=== PATIENT | male | born 1975 | race Caucasian/White ===

== ENCOUNTER 2017-01-10 09:26 | Emergency (ER) | payer SELFPAY ==
[~2017-01-10] VITALS: Ht 188 cm; Wt 123.0 kg
[2017-01-10 09:28] VITALS: BP 213/126; PULSE 86; RESP 12; TEMP 98.8; O2SAT 95
[2017-01-10 09:35] VITALS: BP 187/107; PULSE 81; RESP 17; TEMP 98.6; O2SAT 97
[2017-01-10] MEDS ORDERED: LISI-515 PO ×2 (09:43→09:58)
[2017-01-10] MEDS ORDERED: cloNIDine HCL 0.2 MG TAB PO ONE (09:45)
--- NOTE | 2017-01-10 10:13 | PD ---
HPI Chief Complaint: Hypertension Time Seen by Provider: 09:38 Travel History International Travel<30 days: No Contact w/Intl Traveler<30days: No Traveled to known affect area: No History of Present Illness HPI This patient presents to the ER for elevated blood pressure. He has long- standing history of hypertension and used to take lisinopril 20 mg daily. He reports that when he took that he tolerated it fine his blood pressures were much better. Current pressure is 180/107. Unfortunately the patient is a cigarette smoker and uses cocaine and drinks at least 8 alcoholic drinks daily. He denies IV drug use. He is not having chest pain or headache. No presyncopal symptoms. Symptoms severity is mild. PFSH Past Medical History Diminished Hearing: No Hypertension: Yes Tetanus Vaccination: Unknown ?: Not Social History Alcohol Use: Yes (8 beers daily ) Tobacco Use: Yes Substance Use: Yes (cocaine, marijuana ) Allergies-Medications (Allergen,Severity, Reaction): Coded Allergies: No Known Allergies (Unverified , 01/10/17) Reported Meds & Prescriptions Reported Meds & Active Scripts Active Lisinopril 20 Mg Tab 20 Mg PO DAILY Review of Systems General / Constitutional: No: Fever HENT: No: Headaches Cardiovascular: No: Chest Pain or Discomfort Respiratory: No: Cough Gastrointestinal: No: Abdominal Pain Psychiatric: Positive: Substance Abuse Physical Exam Narrative GENERAL: Well-nourished, well-developed patient in no apparent distress. SKIN: Focused skin assessment reveals no rash and nodules. Skin is Warm and dry. HEAD: Atraumatic. Normocephalic. EYES: Pupils equal and round. No scleral icterus. No injection or drainage. ENT: No nasal bleeding or discharge. Mucous membranes pink and moist. NECK: Trachea midline. No JVD. CARDIOVASCULAR: Regular rate and rhythm. No murmur appreciated. RESPIRATORY: No accessory muscle use. Clear to auscultation. Breath sounds equal bilaterally. GASTROINTESTINAL: Abdomen soft, obese, non-tender, nondistended. Hepatic and splenic margins not palpable. MUSCULOSKELETAL: No obvious deformities. No clubbing. No cyanosis. Trace symmetric ankle edema. NEUROLOGICAL: Awake and alert. No obvious cranial nerve deficits. Motor grossly within normal limits. Normal speech. PSYCHIATRIC: Appropriate mood and affect; insight and judgment poor Data Data Last Documented VS Vital Signs Date Time Temp Pulse Resp B/P (MAP) Pulse Ox O2 Delivery O2 Flow Rate FiO2 01/10/17 09:35 98.6 81 17 187/107 (133) 97 01/10/17 09:28 Room Air Orders Orders Clonidine (Catapres) (01/10/17 09:45) MDM Medical Decision Making Medical Screen Exam Complete: Yes Emergency Medical Condition: Yes Medical Record Reviewed: Yes Differential Diagnosis Accelerated hypertension, polysubstance abuse, noncompliance Narrative Course I have reviewed the patient's electronic medical record. I gave him a dose of clonidine I refilled his lisinopril for one month Most importantly he needs to get rid of the cocaine and alcohol and cigarettes and I believe his blood pressure will be much improved He is advised to check and recorded daily and follow up with primary care Diagnosis Primary Impression: Accelerated hypertension Additional Impression: Polysubstance abuse Additional Instructions: Check and record blood pressure daily Avoid cigarettes alcohol and cocaine The patient was advised to follow up with their physician and return if they worsen. Med/Other Pt SpecificInfo: Prescription(s) given Scripts Lisinopril (Lisinopril) 20 Mg Tab 20 MG PO DAILY, #30 TAB 0 Refills Prov: Kayode Barros MD 01/10/17 Disposition: 01 DISCHARGE HOME Condition: Stable Kayode Barros MD Jan 10, 2017 10:13
[2017-01-10 10:30] VITALS: BP 170/102
== END 2017-01-10 10:43 | disposition home or self-care (01) ==
LOC: NEPD 09:26
DX: I10 Essential (primary) hypertension (principal); F19.10 Other psychoactive substance abuse, uncomplicated; Z72.0 Tobacco use
CPT/HCPCS: 99283

== ENCOUNTER 2017-06-18 16:46 | Emergency (ER) | payer SELFPAY ==
[~2017-06-18] VITALS: Ht 190.5 cm; Wt 120.0 kg
[~2017-06-18 16:46] MED LIST: LISI-515 PO
[2017-06-18 16:52] VITALS: BP 173/89; PULSE 86; RESP 16; TEMP 98; O2SAT 97
[2017-06-18] MEDS ORDERED: PHENYLEPHRINE INJ 0.5 MG, SODIUM CHLORIDE 0.9% INJ 0.95 ML in SYRINGE/BAG 1 EA I-CAVITARY ONE ×2 (17:30)
--- NOTE | 2017-06-18 17:34 | PD ---
HPI Chief Complaint: Complaint Time Seen by Provider: 17:13 Travel History International Travel<30 days: No Contact w/Intl Traveler<30days: No Traveled to known affect area: No History of Present Illness HPI The patient is a 41-year-old [place] male who presents emergency department for priapism. The patient states he used cocaine earlier today at 1 PM, then developed a priapism. The patient does have a history of priapism after previous cocaine use. He denies the use of any erectile dysfunction medications. He did not attempt sex or masturbation after the priapism, states it is not worked in the past. He has received injections and drainage in the past for priapism. He denies any history of sickle cell disease. He denies any trauma to the penis. Symptoms are moderate, exacerbated after using cocaine , there are no current alleviating factors. PFSH Past Medical History Diminished Hearing: No Hypertension: Yes Reproductive: Yes (PRIAPISM) Tetanus Vaccination: Unknown Social History Alcohol Use: Yes (8 beers daily ) Tobacco Use: Yes Substance Use: Yes (cocaine, marijuana ) Allergies-Medications (Allergen,Severity, Reaction): Coded Allergies: No Known Allergies (Unverified Allergy, Unknown, 06/18/17) Reported Meds & Prescriptions Reported Meds & Active Scripts Active [place] (Hydrocodone-Acetaminophen) 5 Mg-325 Mg Tab 1 Tab PO Q6H PRN Lisinopril 20 Mg Tab 20 Mg PO DAILY Review of Systems Except as stated in HPI: all other systems reviewed are Neg General / Constitutional: No: Fever Gastrointestinal: No: Nausea, Vomiting Genitourinary: Positive: Other (as noted in history of present illness) Hematologic/Lymphatic: No: Other (denies any history of sickle cell disease) Physical Exam Narrative GENERAL: Awake, alert, pleasant 41-year-old male who appears his stated age and is in no acute respiratory distress. SKIN: Focused skin assessment warm/dry. HEAD: Atraumatic. Normocephalic. EYES: No injection or drainage. NECK: Trachea midline. No JVD. CARDIOVASCULAR: Regular rate and rhythm. No murmur appreciated. RESPIRATORY: No accessory muscle use. Clear to auscultation. Breath sounds equal bilaterally. GASTROINTESTINAL: Abdomen soft, non-tender, nondistended. No rebound tenderness. Genitourinary: Erection noted. MUSCULOSKELETAL: No obvious deformities. No clubbing. No cyanosis. No edema. NEUROLOGICAL: Awake and alert. No obvious cranial nerve deficits. Motor grossly within normal limits. Normal speech. PSYCHIATRIC: Appropriate mood and affect; insight and judgment normal. Data Data Last Documented VS Vital Signs Date Time Temp Pulse Resp B/P (MAP) Pulse Ox O2 Delivery O2 Flow Rate FiO2 06/18/17 19:44 78 16 143/76 (98) 98 Room Air 06/18/17 16:52 98.0 Orders Orders Phenylephrine Inj (Neosynephrine Inj)... (06/18/17 17:30) Morphine Inj (Morphine Inj) (06/18/17 17:45) Ondansetron Inj (Zofran Inj) (06/18/17 17:45) Sodium Chlor 0.9% 1000 Ml Inj (Ns 1000 M (06/18/17 17:45) Morphine Inj (Morphine Inj) (06/18/17 18:45) Ed Discharge Order (06/18/17 19:17) [facility] Medical Decision Making Medical Screen Exam Complete: Yes Emergency Medical Condition: Yes Medical Record Reviewed: Yes Differential Diagnosis Differential diagnosis includes priapism, cocaine side effect, sickle cell disease, ischemia. Narrative Course Phenylephrine intracavernous dose was ordered from pharmacy. I had a discussion regarding the risk and benefits of intracavernous injection, he is agreeable. I injected 250 mics of phenylephrine to each side of the penis on the proximal one third without difficulty. The patient was then monitored in the emergency department for alleviation of the erection. The patient was reevaluated at 6:45 PM, the erection had improved, but not completely. He did complain of pain, was administered another dose of morphine. The patient was then monitored in the emergency department for resolution of the priapism. Diagnosis Primary Impression: Priapism Patient Instructions: General Instructions Additional Instructions: Do not use cocaine. Follow-up with urology as needed. Return if symptoms worsen or progress. Med/Other Pt SpecificInfo: Prescription(s) given Scripts Hydrocodone-Acetaminophen ([place]) 5 Mg-325 Mg Tab 1 TAB PO Q6H Y for PAIN, #10 TAB 0 Refills Prov: Juan Carlos Larose MD 06/18/17 Disposition: 01 DISCHARGE HOME Condition: Stable Juan Carlos Larose MD Jun 18, 2017 17:34
[2017-06-18] MEDS ORDERED: ONDANSETRON HCL 4 MG/2 ML VIAL IV PUSH ONE (17:45)
[2017-06-18] MEDS ORDERED: MORPHINE SULFATE 4 MG/ML INJ IV PUSH ONE ×2 (17:45→18:45)
[2017-06-18] MEDS ORDERED: SODIUM CHLOR 0.9% 1000 ML INJ 1,000 ML IV ONE (17:45)
[2017-06-18] MEDS ORDERED: NORC5TAB PO (18:46)
[2017-06-18 19:44] VITALS: BP 143/76; PULSE 78; RESP 16; O2SAT 98
== END 2017-06-18 19:45 | disposition home or self-care (01) ==
LOC: NEPC 16:46
DX: N48.30 Priapism, unspecified (principal); I10 Essential (primary) hypertension; F14.90 Cocaine use, unspecified, uncomplicated; F12.90 Cannabis use, unspecified, uncomplicated; Z72.89 Other problems related to lifestyle; Z72.0 Tobacco use
CPT/HCPCS: 54220; 96374; 96375; 96376; 99284; J2270; J2370; J2405; J7030

== ENCOUNTER 2018-02-13 19:37 | Observation (INO) ==
--- NOTE | 2018-02-13 21:41 | XR ---
EXAM DATE: 02/13/2018 9:35 PM EST AGE/SEX: 42 years / Male INDICATIONS: Chest pain. CLINICAL DATA: This is the patient's initial encounter. Patient reports that signs and symptoms have been present for 3 days and indicates a pain score of 6/10. MEDICAL/SURGICAL HISTORY: Congestive heart failure. Hypertension. None. COMPARISON: No prior exams available for comparison. FINDINGS: The heart is enlarged. The central bronchopulmonary markings are mildly indistinct. No peripheral inf iltrates seen. Both hemidiaphragms well delineated. The trachea is midline. CONCLUSION: Cardiomegaly and central vascular prominence suggests pulmonary venous hypertension. Electronically signed by: Suresh Ku MD 02/13/2018 9:40 PM EST
[2018-02-13] MEDS ORDERED: Acetaminophen 325 MG Tablet PO ONE (21:49)
[2018-02-13 21:55] LABS: Activated Partial Thrombo Time 26.7 sec (23.4-31.7)
[2018-02-13 21:56] LABS: D-Dimer 0.29 mg/L FEU (0.00-0.50)
--- NOTE | 2018-02-13 21:56 | ED ---
HPI General Chief complaint: Chest Pain Stated complaint: Chest Pain Time Seen by Provider: 02/13/18 21:07 History of Present Illness HPI narrative: Patient is a 42 yo male with a history of CHF and HTN presenting with chest pain. Patient reports that about 5 days ago he felt a sudden sharp pain in his right chest while driving. The pain has remained constant since, and building to an intensity of 8/10 on the pain scale. He denies radiation of the pain to his arm or jaw. He denies chest wall tenderness but reports that pain is worsened by some movements of his right arm and coughing. He denies any alleviating factors. He reports that he is short of breath at times but believes this to be unrelated to his pain. He denies headache, dizziness, reflux, abdominal pain, nausea, vomiting, and changes in bowel/bladder habits. Of note, he has been treated in the past for his hypertension with lisinopril but has not taken this medication in 1-2 months. Related Data Home Medications Medication Instructions Recorded Confirmed No Known Home Medications 02/13/18 02/13/18 Allergies Allergy/AdvReac Type Severity Reaction Status Date / Time No Known Allergies Allergy Verified 02/13/18 19:56 Review of Systems Constitutional Denies fever(s) and Denies headache(s) Eyes Denies change in vision ENT Denies headache(s) and Denies nasal congestion Cardiovascular Reports chest pain, Reports chest pain at rest, Denies pedal edema, Denies edema and Reports leg edema Gastrointestinal Denies abdominal pain, Denies diarrhea, Denies nausea and Denies vomiting Genitourinary Denies difficulty urinating Musculoskeletal Denies myalgias Integumentary/Breasts Denies rash Neurologic Denies headache(s) Psychiatric Denies depression Endocrine Denies polyuria Hematologic/Lymphatic Denies easy bruising PMFSH Medical History Medical History Anxiety (Acute) CHF (congestive heart failure) (Acute) Hypertension (Acute) Social History Social History Substance History: No History of Abuse Smoking Status: Current every day smoker Tobacco Type: Cigarettes How Often Do You Have a Drink Containing Alcohol: 4 or more times a week Recent Travel in [facility] within the Last 8 Weeks: No Recent Out of Country Travel within the Last 8 Weeks: No Immunization History Tetanus Immunization: Unsure Exam Const General: cooperative and well developed Nutritional Appearance: well nourished and obese Orientation: alert, awake and oriented x3 HENMT Head: normocephalic and atraumatic Nose: no nasal discharge and no epistaxis Mouth: moist mucous membranes Eyes Sclera: normal sclerae Pupils: PERRL Neck Neck: trachea midline and no JVD Chest Chest: normal inspection of the chest Resp Effort & Inspection: no use of accessory muscles Auscultation: clear to auscultation bilaterally Cardio Rate: regular rate Rhythm: regular rhythm GI Inspection: non-distended Palpation: soft, no hepatosplenomegaly and nontender Skin General: dry skin (warm) Rashes: no rashes Neuro General: alert and awake Speech: speech normal Motor: no movement abnormalities noted Extrem General: normal to inspection, no clubbing, no cyanosis and no edema Psych Mood: congruent mood Affect: normal affect Judgment: judgment good Course Initial Documented Vital Signs Temperature 98.4 F 02/13/18 19:53 Pulse Rate 94 H 02/13/18 19:53 Respiratory Rate 15 02/13/18 19:53 Blood Pressure 176/108 H 02/13/18 19:53 Pulse Oximetry 96 02/13/18 19:53 Last Documented Vital Signs Temperature 98.4 F 02/13/18 19:53 Pulse Rate 90 02/13/18 21:15 Respiratory Rate 15 02/13/18 19:53 Blood Pressure 183/115 H 02/13/18 21:15 Pulse Oximetry 96 02/13/18 21:15 Medical Decision Making MDM Narrative Medical decision making narrative: I, Dr. Escoto, have reviewed the medical student's documentation, and I am in agreement, met with the patient face to face, made the diagnosis, and the medical decision making was done by me. The patient was initially evaluated by MARIANNE Sharp. Please see their complete history and physical. *My assessment and Findings: The patient presents with a history of right-sided chest pain that he reports began on Monday or Monday while he was driving. He reports that it is worsened with movement and activity, however it continues to be constant. He reports that it is gradually getting worse with time. He reports that it was in the right side of his anterior chest and then now is both in the right side and central chest. He denies having any diaphoresis, nausea, vomiting, radiation of pain associated with this. During the course of the patient's emergency department visit, the patient's history, examination, and differential diagnosis were reviewed with the patient. The patient was placed on a monitoring engineer with oximetry and frequent blood pressure monitoring. The patient had [-] IV access obtained and blood work sent for analysis. The patient was initially provided [-]. The patient's diagnostic studies were reviewed and remarkable for Lab Data Result diagrams: 02/13/18 22:30 02/13/18 21:20 Lab Results 02/13/18 02/13/18 02/13/18 Range/Units 21:20 21:20 21:20 WBC (4.0-11.0) th/mm3 RBC (4.50-5.90) mil/mm3 Hgb (13.0-17.0) gm/dL Hct (39.0-51.0) % MCV (80.0-100.0) fL MCH (27.0-34.0) pg MCHC (32.0-36.0) % RDW (11.6-17.2) % Plt Count (150-450) th/mm3 MPV (7.0-11.0) fL Neut % (Auto) (16.0-70.0) % Lymph % (Auto) (9.0-44.0) % [place] % (Auto) (0.0-8.0) % Eos % (Auto) (0.0-4.0) % Baso % (Auto) (0.0-2.0) % Neut # (Auto) (1.8-7.7) th/mm3 Lymph # (Auto) (1.0-4.8) th/mm3 [place] # (Auto) (0.0-0.9) th/mm3 Eos # (Auto) (0.0-0.4) th/mm3 Baso # (Auto) (0.0-0.2) th/mm3 WBC Differential Differential Comment PT 10.0 (9.8-11.6) sec INR 1.0 Ratio APTT 26.7 (23.4-31.7) sec D-Dimer Quant (PE/DVT) 0.29 (0.00-0.50) mg/L FEU Sodium 142 (136-145) meq/L Potassium 3.6 (3.5-5.1) meq/L Chloride 107 (98-107) meq/L Carbon Dioxide 24.6 (21.0-32.0) meq/L Anion Gap 10 (5-15) meq/L BUN 10 (7-18) mg/dL Creatinine 0.82 (0.60-1.30) mg/dL Estimated GFR Greater than 89 (>89) mL/min Random Glucose 93 (74-106) mg/dL Calcium 8.6 (8.5-10.1) mg/dL Magnesium 2.3 (1.5-2.5) mg/dL Total Bilirubin 0.2 (0.2-1.0) mg/dL AST 24 (15-37) U/L ALT 36 (12-78) U/L Alkaline Phosphatase 89 (45-117) U/L Total Creatine Kinase 215 (39-308) U/L CK-MB (CK-2) 1.6 (0.5-3.6) ng/mL Troponin I 0.06 H (0.02-0.05) ng/mL B-Natriuretic Peptide 41 (0-100) pg/mL Total Protein 7.6 (6.4-8.2) g/dL Albumin 3.6 (3.4-5.0) g/dL Lipase 152 (73-393) U/L 02/13/ Range/Units 22:30 WBC 5.0 (4.0-11.0) th/mm3 RBC 4.49 L (4.50-5.90) mil/mm3 Hgb 13.5 (13.0-17.0) gm/dL Hct 40.5 (39.0-51.0) % MCV 90.2 (80.0-100.0) fL MCH 30.0 (27.0-34.0) pg MCHC 33.3 (32.0-36.0) % RDW 15.0 (11.6-17.2) % Plt Count 232 (150-450) th/mm3 MPV 10.0 (7.0-11.0) fL Neut % (Auto) 50.3 (16.0-70.0) % Lymph % (Auto) 35.2 (9.0-44.0) % [place] % (Auto) 10.5 H (0.0-8.0) % Eos % (Auto) 2.9 (0.0-4.0) % Baso % (Auto) 1.1 (0.0-2.0) % Neut # (Auto) 2.5 (1.8-7.7) th/mm3 Lymph # (Auto) 1.8 (1.0-4.8) th/mm3 [place] # (Auto) 0.5 (0.0-0.9) th/mm3 Eos # (Auto) 0.1 (0.0-0.4) th/mm3 Baso # (Auto) 0.1 (0.0-0.2) th/mm3 WBC Differential . Differential Comment Auto diff final PT (9.8-11.6) sec INR Ratio APTT (23.4-31.7) sec D-Dimer Quant (PE/DVT) (0.00-0.50) mg/L FEU Sodium (136-145) meq/L Potassium (3.5-5.1) meq/L Chloride (98-107) meq/L Carbon Dioxide (21.0-32.0) meq/L Anion Gap (5-15) meq/L BUN (7-18) mg/dL Creatinine (0.60-1.30) mg/dL Estimated GFR (>89) mL/min Random Glucose (74-106) mg/dL Calcium (8.5-10.1) mg/dL Magnesium (1.5-2.5) mg/dL Total Bilirubin (0.2-1.0) mg/dL AST (15-37) U/L ALT (12-78) U/L Alkaline Phosphatase (45-117) U/L Total Creatine Kinase (39-308) U/L CK-MB (CK-2) (0.5-3.6) ng/mL Troponin I (0.02-0.05) ng/mL B-Natriuretic Peptide (0-100) pg/mL Total Protein (6.4-8.2) g/dL Albumin (3.4-5.0) g/dL Lipase (73-393) U/L Imaging Data Radiologist's impression: Chest X-Ray 02/13/18 21:08 CONCLUSION: Cardiomegaly and central vascular prominence suggests pulmonary venous hypertension. ECG Data Attestation: I personally reviewed and interpreted this ECG as follows: Interpretation: The patient had an EKG done on arrival. The patient's EKG reveals a sinus rhythm heart rate of 93, QRS duration 99 ms, QTC [address] segment elevation. Downsloping ST segments are noted in lead III with T wave inversions in lead III. Discharge Plan Physicians Team ED Provider: Coty Escoto Primary Care Provider: Primary Care Molly Gomez Attending Provider: Krystal Will Status ED Status: Admitted Patient
[2018-02-13 21:59] LABS: Albumin 3.6 g/dL (3.4-5.0); Anion Gap 10 meq/L (5-15); Aspartate Aminotransferase 24 U/L (15-37); Blood Urea Nitrogen 10 mg/dL (7-18); Calcium 8.6 mg/dL (8.5-10.1); Carbon Dioxide 24.6 meq/L (21.0-32.0); Chloride 107 meq/L (98-107); Glomerular Filtration Rate Greater Than 89 mL/min (>89); Glucose,Random 93 mg/dL (74-106); Lipase 152 U/L (73-393); Magnesium 2.3 mg/dL (1.5-2.5); Potassium 3.6 meq/L (3.5-5.1); Sodium 142 meq/L (136-145)
[2018-02-13 22:00] LABS: Alanine Aminotransferase 36 U/L (12-78)
[2018-02-13 22:04] LABS: Alkaline Phosphatase 89 U/L (45-117); Creatine Kinase 215 U/L (39-308); Total Protein 7.6 g/dL (6.4-8.2); Troponin I 0.06 ng/mL (0.02-0.05)
[2018-02-13 22:16] LABS: Creatine Kinase MB 1.6 ng/mL (0.5-3.6)
[2018-02-13] MEDS ORDERED: Labetalol HCl Inj 100 MG/20 ML Vial IV.PUSH ONE (22:28)
[2018-02-13 22:57] LABS: Baso # (Auto) 0.1 th/mm3 (0.0-0.2); Baso % (Auto) 1.1 % (0.0-2.0); Eos # (Auto) 0.1 th/mm3 (0.0-0.4); Eos % (Auto) 2.9 % (0.0-4.0); Hematocrit 40.5 % (39.0-51.0); Hemoglobin 13.5 gm/dL (13.0-17.0); Lymph # (Auto) 1.8 th/mm3 (1.0-4.8); Lymph % (Auto) 35.2 % (9.0-44.0); Mean Corpuscular HGB Conc 33.3 % (32.0-36.0); Mean Corpuscular Volume 90.2 fL (80.0-100.0); Mono # (Auto) 0.5 th/mm3 (0.0-0.9); Mono % (Auto) 10.5 % (0.0-8.0); Neut # (Auto) 2.5 th/mm3 (1.8-7.7); Neut % (Auto) 50.3 % (16.0-70.0); Platelet Count 232 th/mm3 (150-450); Red Blood Count 4.49 mil/mm3 (4.50-5.90)
[2018-02-14] MEDS ORDERED: Morphine Inj 4 MG/ML Vial IV.PUSH PRN (01:59)
[2018-02-14] MEDS ORDERED: Acetaminophen 500 MG Tablet PO PRN (01:59)
--- NOTE | 2018-02-14 02:10 | P.HP ---
History of Present Illness Service: [facility] Primary Care Physician: No Primary Care Physician History of Present Illness: 42-year-old male with a past medical history significant for CHF and hypertension presents to the emergency department for the evaluation of chest pain. The patient reports that approximately 4 days ago he started having right -sided chest pain. He states the pain begins in the center of his chest and radiates to the right. The pain is worse with movement. He has had intermittent shortness of breath. He states his symptoms continue to worsen. No abdominal pain. No nausea/vomiting/diarrhea. No fever/chills. No lateralizing signs/symptoms. Inpatient Certification: I certify that the inpatient services were ordered in accordance with Medicare regulations governing the order. This includes certification that hospital inpatient services are reasonable and necessary and in the case of services not specified as inpatient-only under 42 CFR 419.22(n), that they are appropriately provided as inpatient services in accordance to with the 2-midnight benchmark under 43 CFR 412.3(e) Review of Systems All other systems reviewed negative except as stated in HPI PMFSH - History History Provided By: Patient - Medical History Medical History: Medical History (Last Reviewed 02/14/18 @ 02:00 by Krystal Will MD) Anxiety CHF (congestive heart failure) Hypertension - Surgical History Surgical History: Surgical History (Last Updated 02/14/18 @ 02:00 by Krystal Will MD) No history of previous surgery - Family History Family History: Family History (Last Updated 02/14/18 @ 02:00 by Krystal Will MD) Other Hypertension - Tobacco History Tobacco Use In Past 30 Days: Yes Smoking Status: Current every day smoker Tobacco Type: Cigarettes - Alcohol History How Often Do You Have a Drink Containing Alcohol: 4 or more times a week - Substance Use History Substance History: No History of Abuse - Travel History Recent Travel in the [place] Within the Last 8 Weeks: No Recent Travel Out of the Country Within the Last 8 Weeks: No - Immunization History Tetanus Immunization: Unsure Medications and Allergies Active Medications: Active Medications Sodium Chloride (Ns Flush) 2 ml IV.FLUSH UNSCH PRN PRN Reason: FLUSH AFTER USING IV ACCESS Allergies Allergy/AdvReac Type Severity Reaction Status Date / Time No Known Allergies Allergy Verified 02/13/18 19:56 Home Medications Medication Instructions Recorded Confirmed Type No Known Home Medications 02/13/18 02/13/18 History Exam Vital signs: Vital Signs 02/13/18 19:53 02/13/18 21:15 Temperature 98.4 F Pulse Rate 94 H 90 Respiratory Rate 15 Blood Pressure 176/108 H 203/117 H Pulse Oximetry 96 96 Intake & Output 02/13/18 02/13/18 02/14/18 06:59 18:59 06:59 Weight 130.181 kg Narrative: Gen.: No acute distress Head: Normocephalic. Atraumatic. EENT: Pupils equal round and reactive to light. Nose without drainage. Airway intact. Throat without injection. Cardiovascular: Regular rate and rhythm. No murmurs, rubs or gallops. Respiratory: Lungs clear to auscultation bilaterally. No wheezes or rhonchi. Abdomen: Soft, nontender, nondistended. No peritoneal signs. Musculoskeletal: No gross deformities. No edema. Skin: No obvious rashes or erythema. Neuro: Sensory and motor grossly intact. Cranial nerves II through XII grossly intact. Results - Labs CBC & Chem 7: 02/13/18 22:30 02/13/18 21:20 Labs: Laboratory Results - last 24 hr 02/13/18 02/13/18 02/13/18 21:20 21:20 21:20 WBC RBC Hgb Hct MCV MCH MCHC RDW Plt Count MPV Neut % (Auto) Lymph % (Auto) [place] % (Auto) Eos % (Auto) Baso % (Auto) Neut # (Auto) Lymph # (Auto) [place] # (Auto) Eos # (Auto) Baso # (Auto) WBC Differential Differential Comment PT 10.0 INR 1.0 APTT 26.7 D-Dimer Quant (PE/DVT) 0.29 Sodium 142 Potassium 3.6 Chloride 107 Carbon Dioxide 24.6 Anion Gap 10 BUN 10 Creatinine 0.82 Estimated GFR Greater than 89 Random Glucose 93 Calcium 8.6 Magnesium 2.3 Total Bilirubin 0.2 AST 24 ALT 36 Alkaline Phosphatase 89 Total Creatine Kinase 215 CK-MB (CK-2) 1.6 Troponin I 0.06 H B-Natriuretic Peptide 41 Total Protein 7.6 Albumin 3.6 Lipase 152 02/13/18 22:30 WBC 5.0 RBC 4.49 L Hgb 13.5 Hct 40.5 MCV 90.2 MCH 30.0 MCHC 33.3 RDW 15.0 Plt Count 232 MPV 10.0 Neut % (Auto) 50.3 Lymph % (Auto) 35.2 [place] % (Auto) 10.5 H Eos % (Auto) 2.9 Baso % (Auto) 1.1 Neut # (Auto) 2.5 Lymph # (Auto) 1.8 [place] # (Auto) 0.5 Eos # (Auto) 0.1 Baso # (Auto) 0.1 WBC Differential . Differential Comment Auto diff final PT INR APTT D-Dimer Quant (PE/DVT) Sodium Potassium Chloride Carbon Dioxide Anion Gap BUN Creatinine Estimated GFR Random Glucose Calcium Magnesium Total Bilirubin AST ALT Alkaline Phosphatase Total Creatine Kinase CK-MB (CK-2) Troponin I B-Natriuretic Peptide Total Protein Albumin Lipase - Imaging Impressions Chest X-Ray 02/13/18 21:08 CONCLUSION: Cardiomegaly and central vascular prominence suggests pulmonary venous hypertension. Caprini VTE Risk Assessment Caprini VTE Risk Assessment: No/Low Risk (score <= 1) Caprini Risk Assessment Model: Point Value = 1 Point Value = 2 Point Value = 3 Point Value = 5 Age 41-60 Minor surgery BMI > 25 kg/m2 Swollen legs Varicose veins or History of unexplained or recurrent spontaneous Oral contraceptives or hormone replacement Sepsis (< 1 month) Serious lung disease, including pneumonia (< 1 month) Abnormal pulmonary function Acute myocardial infarction Congestive heart failure (< 1 month) History of inflammatory bowel disease Medical patient at bed rest Age 61-74 Arthroscopic surgery Major open surgery (> 45 min) Laparoscopic surgery (> 45 min) Malignancy Confined to bed (> 72 hours) Immobilizing plaster cast Central venous access Age >= 75 History of VTE Family history of VTE Factor V Leiden Prothrombin [id number] Lupus anticoagulant Anticardiolipin antibodies Elevated serum homocysteine Heparin-induced thrombocytopenia Other congenital or acquired thrombophilia Stroke (< 1 month) Elective arthroplasty Hip, pelvis, or leg fracture Acute spinal cord injury (< 1 month) Prophylaxis Regimen: Total Risk Factor Score Risk Level Prophylaxis Regimen 0-1 Low Early ambulation 2 Moderate Order ONE of the following: *Sequential Compression Device (SCD) *Heparin 5000 units SQ BID 3-4 Higher Order ONE of the following medications: *Heparin 5000 units SQ TID *Enoxaparin/Lovenox 40 mg SQ daily (WT < 150 kg, CrCl > 30 mL/min) *Enoxaparin/Lovenox 30 mg SQ daily (WT < 150 kg, CrCl > 10-29 mL/min) *Enoxaparin/Lovenox 30 mg SQ BID (WT < 150 kg, CrCl > 30 mL/min) AND/OR *Sequential Compression Device (SCD) 5 or more Highest Order ONE of the following medications: *Heparin 5000 units SQ TID (Preferred with Epidurals) *Enoxaparin/Lovenox 40 mg SQ daily (WT < 150 kg, CrCl > 30 mL/min) *Enoxaparin/Lovenox 30 mg SQ daily (WT < 150 kg, CrCl > 10-29 mL/min) *Enoxaparin/Lovenox 30 mg SQ BID (WT < 150 kg, CrCl > 30 mL/min) AND *Sequential Compression Device (SCD) Assessment and Plan - Plan Assessment/plan: 1. Chest pain/shortness of breath/CHF EKG shows normal sinus rhythm, pulse 93, no ST segment elevation or depression, personally reviewed Initial troponin 0.06 Chest x-ray significant for cardiomegaly and central vascular prominence suggesting pulmonary venous hypertension ACS rule out pending; serial troponins/EKGs Echo pending Pulmonology consulted for assistance with pulmonary hypertension 2. Hypertension Patient not currently on any home medications Blood pressure 203/117 Status post labetalol x1 in the ED Scheduled nifedipine FEN N.p.o. Electrolytes: Monitor and replete prn
[2018-02-14 04:22] LABS: Troponin I 0.05 ng/mL (0.02-0.05)
[2018-02-14] MEDS: Aspirin 325 MG Tablet PO SCH (08:06)
[2018-02-14] MEDS: Famotidine 20 MG Tablet PO SCH ×2 (08:06→21:05)
--- NOTE | 2018-02-14 08:34 | ECG ---
Date Performed: 02/14/2018 Time Performed: 03:32:03 PTAGE: 42 years EKG: Sinus rhythm NONSPECIFIC ST & T-WAVE ABNORMALITY BORDERLINE ECG PREVIOUS TRACING : 02/13/2018 20.04 DOCTOR: Edgardo Medrano Interpretating Date/Time 02/14/2018 08:32:09
--- NOTE | 2018-02-14 08:54 | P.EN ---
Patient resting in bed. Family members at bedside. He continues to experience intermittent right sided chest pain that is worse with movement. Pain is reproducible when palpating right anterior chest wall. Patient has a history of hypertension but has not been taking his blood pressure medications over the past 2 months. He expresses concern over cost of medication. Echocardiogram being completed at present time. Patient denies shortness of breath, lower extremity pain/edema.
[2018-02-14 10:20] LABS: Amphetamine Screen,Urine Neg (Neg); Barbiturate Screen,Urine Neg (Neg); Cannabinoid Screen,Urine Neg (Neg)
[2018-02-14 10:21] LABS: Cocaine Screen,Urine Neg (Neg); Opiate Screen,Urine Pos (Neg)
[2018-02-14] MEDS: hydrALAZINE 25 MG Tablet PO PRN (10:59)
--- NOTE | 2018-02-14 12:06 | ECG ---
Date Performed: 02/13/2018 Time Performed: 20:04:46 PTAGE: 42 years EKG: Sinus rhythm POSSIBLE LEFT ATRIAL ENLARGEMENT POSSIBLE LEFT VENTRICULAR HYPERTROPHY NONSPECIFIC T-WAVE ABNORMALIT Y ABNORMAL ECG NO PREVIOUS TRACING DOCTOR: Edgardo Medrano Interpretating Date/Time 02/14/2018 12:06:07
[2018-02-14] MEDS ORDERED: Sodium Chloride 0.9% 2 ML Flush PRN IV.FLUSH (14:06)
[2018-02-14] MEDS: Metoprolol Tartrate 25 MG Tablet PO SCH ×2 (14:44→21:06)
--- NOTE | 2018-02-14 18:38 | ECHRPT ---
Indication: Chest Pain CONCLUSIONS The left ventricular systolic function is normal with an estimated ejection fraction in the range of 55-60%. Mild concentric left ventricular hypertrophy. [id number] mitral valve regurgitation. There is trace tricuspid valve regurgitation. BP: / HR: Rhythm: MEASUREMENTS (Male / Female) Normal Values Technical Quality:Fair 2D ECHO LV Diastolic Diameter PLAX 5.6 cm 4.2 - 5.9 / 3.9 - 5.3 cm LV Systolic Diameter PLAX 4.2 cm IVS Diastolic Thickness 1.5 cm 0.6 - 1.0 / 0.6 - 0.9 cm LVPW Diastolic Thickness 1.3 cm 0.6 - 1.0 / 0.6 - 0.9 cm LV Relative Wall Thickness 0.5 RV Internal Dim ED PLAX 3.3 cm LVOT Diameter 2.4 cm Aortic Root Diameter 3.6 cm LA Systolic Diameter LX 3.8 cm 3.0 - 4.0 / 2.7 - 3.8 cm DOPPLER AV Peak Velocity 145.0 cm/s AV Peak Gradient 8.4 mmHg LVOT Peak Velocity 102.0 cm/s LVOT Peak Gradient 4.2 mmHg AV Area Cont Eq pk 3.2 cm Mitral E Point Velocity 80.9 cm/s Mitral A Point Velocity 66.1 cm/s Mitral E to A Ratio 1.2 LV E' Lateral Velocity 7.4 cm/s Mitral E to LV E' Lateral Ratio 10.9 LV E' Septal Velocity 5.6 cm/s Mitral E to LV E' Septal Ratio 14.6 TR Peak Velocity 145.0 cm/s TR Peak Gradient 8.4 mmHg Right Atrial Pressure 10.0 mmHg Pulmonary Artery Systolic Pressu 18.4 mmHg Right Ventricular Systolic Press 18.4 mmHg PV Peak Velocity 78.7 cm/s PV Peak Gradient 2.5 mmHg FINDINGS LEFT VENTRICLE Normal left ventricular size. Mild concentric left ventricular hypertrophy. The left ventricular systolic function is normal with an estimated ejection fraction in the range of 55-60%. RIGHT VENTRICLE Normal right ventricular size and systolic function. LEFT ATRIUM The left atrial size is upper limits of normal. RIGHT ATRIUM The right atrial size is normal. ATRIAL SEPTUM Normal atrial septal thickness AORTA The aortic root and proximal ascending aorta are normal in size on limited imaging. MITRAL VALVE Structurally normal mitral valve. [id number] mitral valve regurgitation. No mitral valve stenosis. AORTIC VALVE Trileaflet aortic valve. No aortic valve stenosis or regurgitation. TRICUSPID VALVE Structurally normal tricuspid valve. There is trace tricuspid valve regurgitation. The estimated pulmonary arterial pressure is 18 mmHg. PULMONARY VALVE No pulmonary valve regurgitation or stenosis. VESSELS The inferior vena cava is normal in size. PERICARDIUM No pericardial effusion. Ferny Ceja DO (Electronically Signed) Final Date:14 February 2018 18:37
[2018-02-14] MEDS: Sodium Chloride 0.9% 2 ML Flush BID IV.FLUSH SCH (21:04)
--- NOTE | 2018-02-14 21:13 | MB ---
cc: Kenny Peguero MD,Krystal Deshpande MD DATE: 02/14/2018 REQUESTING PHYSICIAN: Krystal Will MD. REASON FOR CONSULTATION: Pulmonary hypertension. HISTORY OF PRESENT ILLNESS: Mr. Werner is a 42-year-old obese male with a history of hypertension and congestive heart failure. He has stopped taking his blood pressure medication because he could not afford it and he has not been seeing any physician. He came to the hospital with right-sided chest pain for the last 5 days, which is worse when he coughs or moves his shoulder in a certain way. He did not have any nausea or vomiting. No fever, chills. No night sweats. He had a workup done in the hospital. He had a chest x-ray done which shows cardiomegaly and vascular prominence. He had echocardiogram done, which shows his ejection fraction is 55 to 60%. He has mild left ventricular concentric hypertrophy, trace tricuspid regurgitation. His a right ventricular pressure is 18.4. PAST MEDICAL HISTORY: Significant history of hypertension. MEDICATIONS: He is currently takin. Tylenol. 2. Aspirin 325 mg a day. 3. Pepcid 20 mg b.i.d. 4. Hydralazine 25 mg 3 times a day as needed. 5. Metoprolol 12.5 mg twice a day. ALLERGIES: NO KNOWN DRUG ALLERGIES. SOCIAL HISTORY: He is for 2 years. He has a history of smoking 1/2 pack a day, drinks more than 8 beers a day, and uses cocaine. His last use was 3 weeks ago. He works as seafood vendor. FAMILY HISTORY: He has 1 child. REVIEW OF SYSTEMS: Normally, he is up and active, walks about 2 miles. No headache or dizziness. No nausea, vomiting. No syncope or presyncope. PHYSICAL EXAMINATION: GENERAL: Shows a well-developed, well-nourished male, not in any acute distress. VITAL SIGNS: Blood pressure 176/105, heart rate 84, respirations 16, temperature 98.2. HEENT: Pupils are equal, round, and reactive to light. Oral mucosa and nasal mucosa normal. NECK: Supple. JVD not raised. CHEST: Quiet. No rhonchi. HEART: S1, S2 normal. ABDOMEN: Benign. EXTREMITIES: No edema. IMPRESSION: 1. Hypertension. 2. Congestive heart failure. 3. No pulmonary hypertension. His RVSP is 18.4. 4. Nicotine use. 5. Cocaine use. 6. Alcohol abuse. PLAN: I discussed with the patient and advised him compliance with his medication, and I advised him to quit smoking and decrease his alcohol use, and he should have regular followup for control of his hypertension. There is no evidence of pulmonary hypertension on echocardiogram. His RVSP is 18.5. Thank you Dr. Will for this consult. MD DELIA Meléndez/tamia , 07:38 PM , 07:47 PM [place]
[2018-02-15] MEDS: hydrALAZINE 25 MG Tablet PO PRN (00:10)
[2018-02-15 07:02] LABS: Baso % (Auto) 0.7 % (0.0-2.0); Eos # (Auto) 0.2 th/mm3 (0.0-0.4); Eos % (Auto) 4.7 % (0.0-4.0); Hematocrit 39.1 % (39.0-51.0); Lymph # (Auto) 1.6 th/mm3 (1.0-4.8); Lymph % (Auto) 33.2 % (9.0-44.0); Mean Corpuscular HGB Conc 33.2 % (32.0-36.0); Mean Corpuscular Hemoglobin 30.2 pg (27.0-34.0); Mean Corpuscular Volume 90.9 fL (80.0-100.0); Mean Platelet Volume 9.8 fL (7.0-11.0); Mono # (Auto) 0.6 th/mm3 (0.0-0.9); Neut # (Auto) 2.3 th/mm3 (1.8-7.7); Neut % (Auto) 48.4 % (16.0-70.0); Platelet Count 225 th/mm3 (150-450); Red Blood Count 4.31 mil/mm3 (4.50-5.90); White Blood Count 4.7 th/mm3 (4.0-11.0)
[2018-02-15 07:29] LABS: Anion Gap 7 meq/L (5-15); Blood Urea Nitrogen 12 mg/dL (7-18); Calcium 8.6 mg/dL (8.5-10.1); Carbon Dioxide 29.3 meq/L (21.0-32.0); Chloride 105 meq/L (98-107); Glomerular Filtration Rate Greater Than 89 mL/min (>89); Glucose,Random 102 mg/dL (74-106); Potassium 3.8 meq/L (3.5-5.1); Sodium 141 meq/L (136-145)
--- NOTE | 2018-02-15 08:46 | P.PN ---
Subjective Interval history: follow up for cp and uncontrolled HTN: Physical Exam Vital signs: Vital Signs 02/14/18 08:54 02/14/18 10:15 02/14/18 12:00 Temperature 98.0 F Pulse Rate 85 Respiratory Rate 16 Blood Pressure 164/104 H 170/94 H Pulse Oximetry 97 93 L 02/14/18 15:03 02/14/18 20:00 02/15/18 00:00 Temperature 98.2 F 98.1 F 98.1 F Pulse Rate 84 91 H 74 Respiratory Rate 16 17 17 Blood Pressure 176/105 H 181/109 H 178/107 H Pulse Oximetry 97 93 L 99 02/15/18 03:43 02/15/18 05:55 02/15/18 07:08 Temperature 97.6 F 97.9 F Pulse Rate 82 81 Respiratory Rate 17 22 16 Blood Pressure 186/110 H 198/128 H Pulse Oximetry 95 96 Intake & Output 02/14/18 02/15/18 02/15/18 18:59 06:59 18:59 Intake Total 600 / 600 Balance 600 / 600 Intake: Oral 600 / 600 Other: # Voids 3 Date of Last Bowel Movement 02/13/18 Results - Labs CBC & Chem 7: 02/15/18 05:57 02/15/18 05:57 Laboratory Results - last 24 hr 02/14/18 02/15/18 02/15/18 09:42 05:57 05:57 WBC 4.7 RBC 4.31 L Hgb 13.0 Hct 39.1 MCV 90.9 MCH 30.2 MCHC 33.2 RDW 15.0 Plt Count 225 MPV 9.8 Neut % (Auto) 48.4 Lymph % (Auto) 33.2 [place] % (Auto) 13.0 H Eos % (Auto) 4.7 H Baso % (Auto) 0.7 Neut # (Auto) 2.3 Lymph # (Auto) 1.6 [place] # (Auto) 0.6 Eos # (Auto) 0.2 Baso # (Auto) 0.0 WBC Differential . Differential Comment Auto diff final Sodium 141 Potassium 3.8 Chloride 105 Carbon Dioxide 29.3 Anion Gap 7 BUN 12 Creatinine 0.78 Estimated GFR Greater than 89 Random Glucose 102 Calcium 8.6 Urine Opiates Screen Pos H Ur Barbiturates Screen Neg Ur Amphetamines Screen Neg U Benzodiazepines Scrn Neg Urine Cocaine Screen Neg U Cannabinoids Screen Neg
[2018-02-15] MEDS: Famotidine 20 MG Tablet PO SCH ×2 (08:56→20:13)
[2018-02-15] MEDS: amLODIPine 10 MG Tablet PO SCH (08:57)
[2018-02-15] MEDS: Metoprolol Tartrate 25 MG Tablet PO SCH ×2 (08:57→20:13)
[2018-02-15] MEDS: Aspirin 325 MG Tablet PO SCH (08:58)
[2018-02-15] MEDS ORDERED: hydroCHLOROthiazide 25 MG Tablet PO ONE (12:45)
[2018-02-15] MEDS: Sodium Chloride 0.9% 2 ML Flush BID IV.FLUSH SCH ×2 (13:09→20:15)
[2018-02-15 15:26] LABS: Bilirubin,Urine Negative (Negative); Clarity,Urine Clear (Clear); Color,Urine Yellow (Yellw/Straw); Glucose,Urine (UA) Negative (Negative); Leukocyte Esterase,Urine Negative (Negative); Mucus,Urine Few /lpf (Occasional); Nitrite,Urine Negative (Negative); Specific Gravity,Urine 1.011 (1.002-1.035)
--- NOTE | 2018-02-15 15:55 | P.PN ---
Subjective Interval history: Follow up for right chest wall pain, uncontrolled BP:pt. seen and examined, c/o right sided chest wall pain with movement and palpation only, non radiating. No SOB, no n/v, no diaphoresis. Afebrile. BP elevated, 198/120. BP has remained elevated, anxious to go home. Physical Exam Vital signs: Vital Signs 02/14/18 20:00 02/15/18 00:00 02/15/18 03:43 Temperature 98.1 F 98.1 F 97.6 F Pulse Rate 91 H 74 82 Respiratory Rate 17 17 17 Blood Pressure 181/109 H 178/107 H 186/110 H Pulse Oximetry 93 L 99 95 02/15/18 05:55 02/15/18 07:08 02/15/18 11:52 Temperature 97.9 F 98.1 F Pulse Rate 81 77 Respiratory Rate 22 16 16 Blood Pressure 198/128 H 179/120 H Pulse Oximetry 96 97 Intake & Output 02/14/18 02/15/18 02/15/18 18:59 06:59 18:59 Intake Total 600 / 600 Balance 600 / 600 Intake: Oral 600 / 600 Other: # Voids 3 Date of Last Bowel Movement 02/13/18 Narrative: Gen.: No acute distress Head: Normocephalic. Atraumatic. EENT: Pupils equal round and reactive to light. Nose without drainage. Airway intact. Throat without injection. Cardiovascular: Regular rate and rhythm. No murmurs, rubs or gallops. Respiratory: Lungs clear to auscultation bilaterally. No wheezes or rhonchi. Abdomen: Soft, nontender, nondistended. No peritoneal signs. Musculoskeletal: No gross deformities. No edema. Skin: No obvious rashes or erythema. Neuro:Grossly intact. Results - Labs CBC & Chem 7: 02/15/18 05:57 02/15/18 05:57 Laboratory Results - last 24 hr 02/15/18 02/15/18 02/15/18 05:57 05:57 14:15 WBC 4.7 RBC 4.31 L Hgb 13.0 Hct 39.1 MCV 90.9 MCH 30.2 MCHC 33.2 RDW 15.0 Plt Count 225 MPV 9.8 Neut % (Auto) 48.4 Lymph % (Auto) 33.2 [place] % (Auto) 13.0 H Eos % (Auto) 4.7 H Baso % (Auto) 0.7 Neut # (Auto) 2.3 Lymph # (Auto) 1.6 [place] # (Auto) 0.6 Eos # (Auto) 0.2 Baso # (Auto) 0.0 WBC Differential . Differential Comment Auto diff final Sodium 141 Potassium 3.8 Chloride 105 Carbon Dioxide 29.3 Anion Gap 7 BUN 12 Creatinine 0.78 Estimated GFR Greater than 89 Random Glucose 102 Calcium 8.6 Urine Color Yellow Urine Clarity Clear Urine pH 7.0 Ur Specific [place] 1.011 Urine Protein Negative Urine Glucose (UA) Negative Urine Ketones Negative Urine Occult Blood Negative Urine Nitrate Negative Urine Bilirubin Negative Urine Urobilinogen Less than 2 Ur Leukocyte Esterase Negative Urine RBC 1 Urine Mucus Few H Micro UA Comment Culture not ind Ur Microscopic Review Not Reportable Urine Culture Comments Culture not ind Assessment and Plan - Assessment (1) Accelerated hypertension Code(s): I10 - Essential (primary) hypertension Status: Acute (2) Cardiomegaly Code(s): I51.7 - Cardiomegaly Status: Chronic (3) Chest pain Code(s): R07.9 - Chest pain, unspecified Status: Acute - Plan 42-year-old male with a past medical history significant for CHF and hypertension presents to the emergency department for the evaluation of chest pain. The patient reports that approximately 4 days ago he started having right -sided chest pain. Chest pain, right sided, atypical, non radiating EKG shows normal sinus rhythm, pulse 93, no ST segment elevation or depression Serial trop negative. Chest x-ray significant for cardiomegaly and central vascular prominence suggesting pulmonary venous hypertension ACS ruled out, likely musculoskeletal. pt. endorses heavy lifting -continue ASA 325 mg po daily -Archie PRN, DC morphine -add Toradol PRN Pulmonary hypertension -pulmonology evaluated, recommends compliance with medications, smoking cessation. Hx of CHF Echo results noted, likely diastolic HF, no evidence of fluid overload -control BP Accelerated Hypertension Patient not currently on any home medications, was on Lisinopril but stopped taking due to cost BP poorly controlled, despite starting Norvasc and Metoprolol -echo done EF 55-60%, mild concentric LVH, discussed findings with pt and . -continue Norvasc 10 mg PO daily, inc. Metoprolol to 25 mg po bid -will add HCTZ 25 mg po daily -continue to adjust meds as needed. -continue with Hydralazine PRN Tobacco abuse Prior hx of cocaine use -counseling done ETOH use -counseling done If BP better controlled, plan to dc tomorrow d/w pt and at length, questions answered in detail. Code Status: Full code Discussed Condition With: RN, pt and , CM Discharge Planning: Plan to dc tomorrow if BP controlled at least 150s/80's (3) Chest pain Qualifiers: Chest pain type: chest pain on breathing Qualified Code(s): R07.1 - Chest pain on breathing; R07.81 - Pleurodynia
[2018-02-15] MEDS ORDERED: Ketorolac 10 MG Tablet PO PRN (17:26)
--- NOTE | 2018-02-15 18:05 | ECG ---
Date Performed: 02/14/2018 Time Performed: 11:48:16 PTAGE: 42 years EKG: Sinus rhythm MODERATE VOLTAGE CRITERIA FOR LVH, CONSIDER NORMAL VARIANT NONSPECIFIC T-WAVE ABNORMALITY BORDERLINE ECG PREVIOUS TRACING 02/14/18 @ 03.32.03 Since the previous tracing, no significant change noted DOCTOR: Shekhar Landry Interpretating Date/Time 02/15/2018 18:04:30
--- NOTE | 2018-02-15 19:33 | P.PNPL ---
Subjective Interval history: 42 YO Obese AA male with HTN, Nicotine and coccain use has elevated BP No SOB no headache no CP Physical Exam Vital signs: Vital Signs 02/14/18 20:00 02/15/18 00:00 02/15/18 03:43 Temperature 98.1 F 98.1 F 97.6 F Pulse Rate 91 H 74 82 Respiratory Rate 17 17 17 Blood Pressure 181/109 H 178/107 H 186/110 H Pulse Oximetry 93 L 99 95 02/15/18 05:55 02/15/18 07:08 02/15/18 11:52 Temperature 97.9 F 98.1 F Pulse Rate 81 77 Respiratory Rate 22 16 16 Blood Pressure 198/128 H 179/120 H Pulse Oximetry 96 97 02/15/18 15:59 Temperature 98.2 F Pulse Rate 75 Respiratory Rate 16 Blood Pressure 175/90 H Pulse Oximetry 97
--- NOTE | 2018-02-15 19:33 | P.PNPL ---
Subjective Interval history: 42 YO AA male with HTN, Rt CP Feels better No CP Denies SOB BP was high Physical Exam Vital signs: Vital Signs 02/14/18 20:00 02/15/18 00:00 02/15/18 03:43 Temperature 98.1 F 98.1 F 97.6 F Pulse Rate 91 H 74 82 Respiratory Rate 17 17 17 Blood Pressure 181/109 H 178/107 H 186/110 H Pulse Oximetry 93 L 99 95 02/15/18 05:55 02/15/18 07:08 02/15/18 11:52 Temperature 97.9 F 98.1 F Pulse Rate 81 77 Respiratory Rate 22 16 16 Blood Pressure 198/128 H 179/120 H Pulse Oximetry 96 97 02/15/18 15:59 Temperature 98.2 F Pulse Rate 75 Respiratory Rate 16 Blood Pressure 175/90 H Pulse Oximetry 97 GENERAL: WBWn NAD SKIN: Warm and dry. HEAD: Normocephalic. EYES: No scleral icterus. No injection or drainage. NECK: Supple, trachea midline. No JVD or lymphadenopathy. CARDIOVASCULAR: Regular rate and rhythm without murmurs, gallops, or rubs. RESPIRATORY: Breath sounds equal bilaterally. No accessory muscle use. GASTROINTESTINAL: Abdomen soft, non-tender, nondistended. MUSCULOSKELETAL: No cyanosis, or edema. BACK: Nontender without obvious deformity. No CVA tenderness. Assessment and Plan - Plan IMPRESSION: 1. Hypertension. 2. Congestive heart failure. 3. No pulmonary hypertension. His RVSP is 18.4. 4. Nicotine use. 5. Cocaine use. 6. Alcohol abuse. PLAN: Controll HTN Smoking cessation Advised decrease ETOH Stable on RA
[2018-02-15] MEDS: Lisinopril 5 MG Tablet PO SCH (20:12)
[2018-02-15] MEDS ORDERED: Lisinopril 5 MG Tablet PO SCH (21:00)
[2018-02-16] MEDS: hydrALAZINE 25 MG Tablet PO PRN ×2 (00:33→07:37)
[2018-02-16 07:25] VITALS: RESP 18
[2018-02-16] MEDS: Aspirin 325 MG Tablet PO SCH (08:23)
[2018-02-16] MEDS: Lisinopril 5 MG Tablet PO SCH (08:23)
[2018-02-16] MEDS: Metoprolol Tartrate 25 MG Tablet PO SCH (08:23)
[2018-02-16] MEDS: amLODIPine 10 MG Tablet PO SCH (08:23)
[2018-02-16] MEDS: Famotidine 20 MG Tablet PO SCH (08:23)
[2018-02-16] MEDS: Sodium Chloride 0.9% 2 ML Flush BID IV.FLUSH SCH (08:24)
[2018-02-16] MEDS ORDERED: hydroCHLOROthiazide 25 MG Tablet PO SCH (09:00)
--- NOTE | 2018-02-16 09:19 | P.PN ---
Subjective Interval history: Follow up for right chest wall pain, uncontrolled BP:pt. seen and examined right sided chest pain better. BP improving 170s/90s. no sob, no diaphoresis, no DIAZ, no n/v/d. Afebrile. at bsd. Anxious to go home Physical Exam Vital signs: Vital Signs 02/15/18 11:52 02/15/18 15:59 02/15/18 20:06 Temperature 98.1 F 98.2 F 98.6 F Pulse Rate 77 75 80 Respiratory Rate 16 16 20 Blood Pressure 179/120 H 175/90 H 159/105 H Pulse Oximetry 97 97 97 02/16/18 00:00 02/16/18 02:40 02/16/18 03:08 Temperature 97.9 F Pulse Rate 72 73 Respiratory Rate 20 Blood Pressure 163/101 H 159/92 H Pulse Oximetry 98 02/16/18 03:28 02/16/18 07:21 Temperature 98.0 F 98.5 F Pulse Rate 71 71 Respiratory Rate 17 18 Blood Pressure 169/99 H 183/94 H Pulse Oximetry 96 Intake & Output 02/15/18 02/16/18 02/16/18 18:59 06:59 18:59 Other: Date of Last Bowel Movement 02/15/18 02/15/18 Narrative: Gen.: No acute distress Head: Normocephalic. Atraumatic. EENT: Pupils equal round and reactive to light. Nose without drainage. Airway intact. Throat without injection. Cardiovascular: Regular rate and rhythm. No murmurs, rubs or gallops. Respiratory: Lungs clear to auscultation bilaterally. No wheezes or rhonchi. Abdomen: Soft, nontender, nondistended. No peritoneal signs. Musculoskeletal: No gross deformities. No edema. Skin: No obvious rashes or erythema. Neuro:Grossly intact. Results - Labs CBC & Chem 7: 02/15/18 05:57 02/15/18 05:57 Laboratory Results - last 24 hr 02/15/18 14:15 Urine Color Yellow Urine Clarity Clear Urine pH 7.0 Ur Specific [place] 1.011 Urine Protein Negative Urine Glucose (UA) Negative Urine Ketones Negative Urine Occult Blood Negative Urine Nitrate Negative Urine Bilirubin Negative Urine Urobilinogen Less than 2 Ur Leukocyte Esterase Negative Urine RBC 1 Urine Mucus Few H Micro UA Comment Culture not ind Ur Microscopic Review Not Reportable Urine Culture Comments Culture not ind Assessment and Plan - Assessment (1) Accelerated hypertension Code(s): I10 - Essential (primary) hypertension Status: Acute (2) Cardiomegaly Code(s): I51.7 - Cardiomegaly Status: Chronic (3) Chest pain Code(s): R07.9 - Chest pain, unspecified Status: Acute - Plan 42-year-old male with a past medical history significant for CHF and hypertension presents to the emergency department for the evaluation of chest pain. The patient reports that approximately 4 days ago he started having right -sided chest pain. Chest pain, right sided, atypical, non radiating EKG shows normal sinus rhythm, pulse 93, no ST segment elevation or depression Serial trop negative. Chest x-ray significant for cardiomegaly and central vascular prominence suggesting pulmonary venous hypertension ACS ruled out, likely musculoskeletal. pt. endorses heavy lifting -continue ASA 325 mg po daily -[place] PRN, DC morphine -Toradol PRN Pulmonary hypertension -pulmonology evaluated, recommends compliance with medications, smoking cessation. Hx of CHF Echo results noted, likely diastolic HF, no evidence of fluid overload -control BP Accelerated Hypertension Patient not currently on any home medications, was on Lisinopril but stopped taking due to cost BP poorly controlled, despite starting Norvasc and Metoprolol -echo done EF 55-60%, mild concentric LVH, discussed findings with pt and . -continue Norvasc 10 mg PO daily, inc. Metoprolol to 25 mg po bid -Now on hydrochlorothiazide 25 mg p.o. daily as well as lisinopril 10 mg p.o. daily -continue to adjust meds as needed. -continue with Hydralazine PRN -Blood pressure improving, will recheck at 12 noon and if less than 150/100 will discharge Tobacco abuse Prior hx of cocaine use -counseling done ETOH use -counseling done Discussed with patient and at length, they verbalized understanding on compliance with BP meds Plan to discharge later today, we will reevaluate blood pressure Follow-up at [facility] Heart healthy diet Needs to quit smoking and drinking Activity as tolerated 1300--addendum: bp 141/98, stable for dc Code Status: Full code Discussed Condition With: RN, pt. Discharge Planning: DC today when BP <150/100s. (3) Chest pain Qualifiers: Chest pain type: chest pain on breathing Qualified Code(s): R07.1 - Chest pain on breathing; R07.81 - Pleurodynia
[2018-02-16 10:54] VITALS: TEMP 98.4; O2SAT 97
--- NOTE | 2018-02-16 11:28 | P.PNPL ---
Subjective Interval history: 42 YO AA male with HTN, Rt CP Feels better No CP Denies SOB Anxious to go home Physical Exam Vital signs: Vital Signs 02/15/18 11:52 02/15/18 15:59 02/15/18 20:06 Temperature 98.1 F 98.2 F 98.6 F Pulse Rate 77 75 80 Respiratory Rate 16 16 20 Blood Pressure 179/120 H 175/90 H 159/105 H Pulse Oximetry 97 97 97 02/16/18 00:00 02/16/18 02:40 02/16/18 03:08 Temperature 97.9 F Pulse Rate 72 73 Respiratory Rate 20 Blood Pressure 163/101 H 159/92 H Pulse Oximetry 98 02/16/18 03:28 02/16/18 07:21 02/16/18 08:00 Temperature 98.0 F 98.5 F Pulse Rate 71 71 71 Respiratory Rate 17 18 Blood Pressure 169/99 H 183/94 H Pulse Oximetry 96 02/16/18 10:53 Temperature 98.4 F Pulse Rate 65 Respiratory Rate 18 Blood Pressure 160/98 H Pulse Oximetry 97 Intake & Output 02/15/18 02/16/18 02/16/18 18:59 06:59 18:59 Other: Date of Last Bowel Movement 02/15/18 02/15/18 GENERAL: WBWN NAD SKIN: Warm and dry. HEAD: Normocephalic. EYES: No scleral icterus. No injection or drainage. NECK: Supple, trachea midline. No JVD or lymphadenopathy. CARDIOVASCULAR: Regular rate and rhythm without murmurs, gallops, or rubs. RESPIRATORY: Breath sounds equal bilaterally. No accessory muscle use. GASTROINTESTINAL: Abdomen soft, non-tender, nondistended. MUSCULOSKELETAL: No cyanosis, or edema. BACK: Nontender without obvious deformity. No CVA tenderness. Assessment and Plan - Plan IMPRESSION: 1. Hypertension. 2. Congestive heart failure. 3. No pulmonary hypertension. His RVSP is 18.4. 4. Nicotine use. 5. Cocaine use. 6. Alcohol abuse. PLAN: Controll HTN Smoking cessation Advised decrease ETOH Stable on from Pulm standpoint
[2018-02-16 12:40] VITALS: PULSE 70
[2018-02-16 13:11] VITALS: BP 141/98
--- NOTE | 2018-02-16 15:45 | ECG ---
Date Performed: 02/15/2018 Time Performed: 23:26:18 PTAGE: 42 years EKG: Sinus rhythm ST segment elevation in Leads I and aVL with reciprocal ST sepression. The EKG pattern is consistent with ST segment elevation Myocardial infarction but it should be noted that the finding was also pre sent in the prior tracing PREVIOUS TRACING : 02/14/2018 11.48 Compared to previous tracing, there has been no signi ficant serial change. Clinical correlation is recommended DOCTOR: Lana Andino Interpretating Date/Time 02/16/2018 15:43:47
--- NOTE | 2018-02-16 17:58 | P.DS ---
Date of admission: 02/14/18 01:59 Primary care physician: No Primary Care Physician Attending physician on discharge: Dani Norman Anticipated date of discharge: 02/16/18 Brief History from admission: 42-year-old male with a past medical history significant for CHF and hypertension presents to the emergency department for the evaluation of chest pain. The patient reports that approximately 4 days ago he started having right -sided chest pain. He states the pain begins in the center of his chest and radiates to the right. The pain is worse with movement. He has had intermittent shortness of breath. He states his symptoms continue to worsen. No abdominal pain. No nausea/vomiting/diarrhea. No fever/chills. No lateralizing signs/symptoms. DS: Medications - Discharge Medications Prescriptions: amlodipine [Norvasc] 10 mg PO DAILY 30 Days #30 tab enalapril-hydrochlorothiazide 2 tab PO DAILY 30 Days #60 tab metoprolol tartrate 25 mg PO BID 30 Days #60 tab DS: Summary Hospital Course: 42-year-old male with a past medical history significant for CHF and hypertension presents to the emergency department for the evaluation of chest pain. The patient reports that approximately 4 days ago he started having right -sided chest pain. Chest pain, right sided, atypical, non radiating EKG shows normal sinus rhythm, pulse 93, no ST segment elevation or depression Serial trop negative. Chest x-ray significant for cardiomegaly and central vascular prominence suggesting pulmonary venous hypertension ACS ruled out, likely musculoskeletal. pt. endorses heavy lifting -continued ASA 325 mg po daily -[place] PRN, DCd morphine -Toradol PRN -pain relieved. Pulmonary hypertension per CXR findings -pulmonology evaluated, recommended compliance with medications, smoking cessation. Hx of CHF Echo results noted, likely diastolic HF, no evidence of fluid overload -controlled BP Accelerated Hypertension Patient not currently on any home medications, was on Lisinopril but stopped taking due to cost BP poorly controlled, despite starting Norvasc and Metoprolol -echo done EF 55-60%, mild concentric LVH, discussed findings with pt and . -continued Norvasc 10 mg PO daily, inc. Metoprolol to 25 mg po bid -added Hydrochlorothiazide 25 mg p.o. daily as well as lisinopril 10 mg p.o. daily -continued to adjust meds as needed. -continued with Hydralazine PRN -Blood pressure improved over course of admission, down to 141/98 Tobacco abuse Prior hx of cocaine use -counseling done ETOH use -counseling done Discussed with patient and at length, they verbalized understanding on compliance with BP meds Discharged home in stable condition - Time Spent with Patient Total time spent providing and/or coordinating discharge services: 40 minutes Greater than 30 minutes - Quality: VTE Deep Vein Thrombosis/Pulmonary Embolism Present on Admission: No Exam Vital signs: Vital Signs 02/15/18 20:06 02/16/18 00:00 02/16/18 02:40 Temperature 98.6 F 97.9 F Pulse Rate 80 72 73 Respiratory Rate 20 20 Blood Pressure 159/105 H 163/101 H Pulse Oximetry 97 98 02/16/18 03:08 02/16/18 03:28 02/16/18 07:21 Temperature 98.0 F 98.5 F Pulse Rate 71 71 Respiratory Rate 17 18 Blood Pressure 159/92 H 169/99 H 183/94 H Pulse Oximetry 96 02/16/18 08:00 02/16/18 10:53 02/16/18 12:00 Temperature 98.4 F Pulse Rate 71 65 70 Respiratory Rate 18 Blood Pressure 160/98 H Pulse Oximetry 97 02/16/18 13:00 Temperature Pulse Rate Respiratory Rate Blood Pressure 141/98 H Pulse Oximetry Intake & Output 02/15/18 02/16/18 02/16/18 18:59 06:59 18:59 Other: Date of Last Bowel Movement 02/15/18 02/15/18 Results Procedures completed during hospitalization: none - Impressions ITS Impressions Chest X-Ray 02/13/18 21:08 CONCLUSION: Cardiomegaly and central vascular prominence suggests pulmonary venous hypertension. Discharge Plan - Discharge Disposition Patient Disposition: 01 Discharge Home - Discharge Condition Condition: Stable - Discharge Order Discharge Orders: Discharge Order (Routine); Ordered 02/16/18 Ordered By: Zena Kenny - Discharge Details Anticipated Discharge Date: 02/16/18 - Physicians Team Primary Care Provider: Primary Care Molly Gomez Attending Provider: Dani Norman Other Providers: Kenny Peguero MD
== END 2018-02-16 13:36 | disposition home or self-care (01) ==
LOC: NEPC 19:37 → INTOOBSV 23:44 → NEDA 23:44 → NEPGCP 02-14 03:15
PROVIDERS: ADMIT Internal Medicine; ATTEND Internal Medicine
DX: F41.9 Anxiety disorder, unspecified; E66.9 Obesity, unspecified; F17.210 Nicotine dependence, cigarettes, uncomplicated; I11.0 Hypertensive heart disease with heart failure; I50.30 Unspecified diastolic (congestive) heart failure; I27.20 Pulmonary hypertension, unspecified; F14.90 Cocaine use, unspecified, uncomplicated; F10.10 Alcohol abuse, uncomplicated; I34.0 Nonrheumatic mitral (valve) insufficiency